=== PATIENT | female | born 1970 | race Caucasian/White ===

== ENCOUNTER 2017-01-06 17:34 | Emergency (ER) | payer OTHER ==
[~2017-01-06] VITALS: Ht 165.1 cm; Wt 87.0 kg
[~2017-01-06 17:34] MED LIST: NO MEDS.
[2017-01-06 17:43] VITALS: Ht 165.1 cm; Wt 87.0 kg
--- NOTE | 2017-01-06 19:50 | RADRPT ---
PROCEDURE: CT head CLINICAL INDICATION: Headaches TECHNIQUE: Contiguous 2.5 mm axial images were obtained from the vertex to the skull base. No int ravenous contrast was administered. The calculated dose length product (DLP) = 720.23 mGy-cm. The CTDlvol = 44.73 mGy. One or more of the following dose reduction techniques were used: Automated e xposure control, adjustment of the mA and or KV according to patient size, or use of iterative recon struction technique. COMPARISON: None FINDINGS: There is no evidence of acute intracranial hemorrhage or acute territorial infarct. No mass or mass effect is seen on this noncontrast study. The ventricles and cisterns are normal in size and confi guration. The ovalle-white matter differentiation is within normal limits. The visualized paranasal sinuses are normally aerated. The bony calvarium is unremarkable IMPRESSION: Unremarkable unenhanced CT of the brain RPTAT: HH .Nikolai Antoine MD, MD Date Time Electronically viewed and signed by .Nikolai Antoine MD, MD on 01/06/2017 19:50 .W/
[2017-01-06] MEDS ORDERED: KETOROLAC 30 MG INJ IM STA (19:54)
[2017-01-06] MEDS ORDERED: FIORICET PO (20:40)
[2017-01-06 20:53] VITALS: BP 136/73; PULSE 63; RESP 18; TEMP 98.7
--- NOTE | 2017-01-06 21:14 | ERD ---
ER Documentation Chief Complaint Date/Time DATE: 01/06/17 TIME: 21:07 Chief Complaint RODRIGUEZ X 2 WEEKS HPI Patient is a 46-year-old female who presents to the emergency department with a headache 2 weeks. Patient states the pain is in her right frontal and occipital regions. Patient states that the pain comes and goes in nature. Patient reports taking Tylenol and ibuprofen with no alleviation of symptoms. Patient does report of headaches in the past however she states her headaches do not typically last this long. Patient does report nausea, vomiting and photophobia. Patient denies any photophobia, blurry vision, neck stiffness, chest pain, shortness of breath, dizziness or LOC. Patient denies any trauma or falls. No recent travel. No sick contacts. ROS All systems reviewed and are negative except as per history of present illness. Medications Home Meds Active Scripts Acetamin/Butalbital/Caffeine* (Fioricet*) [id number] Tab, 1 TAB PO Q6H Y for PAIN, #20 TAB Prov:JUVENTINO CAMARA PA-C 01/06/17 Reported Medications [No Meds.] No Conflict Check 02/23/12 Allergies Allergies: Coded Allergies: No Known Drug Allergies (Verified Allergy, Unknown, 01/06/17) PMhx/Soc Medical and Surgical Hx: pt denies Medical Hx, pt denies Surgical Hx History of Surgery: Yes (HYSTERECTOMY, BUNIONECTOMY) Anesthesia Reaction: No Hx Neurological Disorder: No Hx Respiratory Disorders: No Hx Cardiac Disorders: No Hx Psychiatric Problems: No Hx Miscellaneous Medical Probl: No Hx Alcohol Use: No Hx Substance Use: No Hx Tobacco Use: No Physical Exam Vitals Vital Signs Date Time Temp Pulse Resp B/P Pulse Ox O2 Delivery O2 Flow Rate FiO2 01/06/17 20:53 98.7 63 18 136/73 99 Room Air 01/06/17 17:43 98.1 72 18 159/75 99 Physical Exam GENERAL: Well-developed, well-nourished female. Appears in no acute distress. Speaking in full sentences HEAD: Normocephalic, atraumatic. EYES: Pupils are equally reactive bilaterally. EOMs grossly intact. No conjunctival erythema. ENT: Moist mucous membranes. No uvula deviation. No kissing tonsils. NECK: Supple. No meningismus. Normal range of motion of the neck. No cervical midline tenderness. LUNG: Clear to auscultation bilaterally. No rhonchi, wheezing, rales or coarse breath sounds. HEART: Regular rate and rhythm. No murmurs, rubs or gallops. BACK: No midline tenderness. EXTREMITIES: Equal pulses bilaterally. No peripheral clubbing, cyanosis or edema. No unilateral leg swelling. NEUROLOGIC: Alert and oriented x3, cooperative. Mood and affect appropriate to situation. Cranial nerves II through XII are grossly intact. Normal speech. Motor exam: 5/5 strength in upper and lower extremities. Sensory exam: Sensation intact to light touch on all four extremities. Cerebellar function exam: No dysmetria on [id number]. Steady gait. No pronator drift. Negative Brudzinski sign. Negative Kernig sign. SKIN: No rashes or lesions noted. Results 24 hrs Current Medications Medications (Trade) Dose Ordered Sig/Radha Route PRN Reason Start Time Stop Time Status Last Admin Dose Admin Ketorolac Tromethamine (Toradol) 30 mg ONCE STAT IM 01/06/17 19:54 01/06/17 19:55 DC 01/06/17 20:07 Procedures/MDM ED COURSE: The patient was stable throughout ED course. I kept the patient and/or family informed of laboratory and diagnostic imaging results throughout the ED course. DIAGNOSTIC IMAGING: Read by radiologist. DIAGNOSTIC IMAGING REPORT Patient: THIAGO MICHAEL : 1970 Age: 46 Sex: F MR #: [id number] DOS: 01/06/17 1857 Ordering MD: JUVENTINO CAMARA PA-C Location: [facility] Room/Bed: PROCEDURE: CT head CLINICAL INDICATION: Headaches TECHNIQUE: Contiguous 2.5 mm axial images were obtained from the vertex to the skull base. No intravenous contrast was administered. The calculated dose length product (DLP) = 720.23 mGy-cm. The CTDlvol = 44.73 mGy. One or more of the following dose reduction techniques were used: Automated exposure control , adjustment of the mA and or KV according to patient size, or use of iterative reconstruction technique. COMPARISON: None FINDINGS: There is no evidence of acute intracranial hemorrhage or acute territorial infarct. No mass or mass effect is seen on this noncontrast study. The ventricles and cisterns are normal in size and configuration. The ovalle-white matter differentiation is within normal limits. The visualized paranasal sinuses are normally aerated. The bony calvarium is unremarkable IMPRESSION: Unremarkable unenhanced CT of the brain RPTAT: HH .iNkolai Antoine MD, MD Date Time Electronically viewed and signed by .Nikolai Antoine MD, MD on 01/06/2017 19:50 .W/ CC: JUVENTINO CAMARA PA-C PROCEDURES: None. MEDICATIONS GIVEN: Toradol IM was given to the patient after CT head came back negative. Patient tolerated medication well with no adverse reactions. Patient reported improvement in pain. MEDICAL DECISION MAKING: This is a 46-year-old female who presents with a headache 2 weeks. Patient states pain is intermittent in nature. Vital signs were reviewed. Patient was afebrile. Patient is not hypoxic. Patient does report a history of headaches in the past however she states that her headaches typically resolved. Patient denied any fevers, neck stiffness, visual changes or LOC. Full neurological exam was normal. CT scan of the brain was obtained given the patient stated that her headache lasted longer than usual. CT scan of the brain was negative. Given these findings, the patient's presentation is most consistent with tension versus migraine headache. I have a much lower clinical concern for intracranial hemorrhage, meningitis, encephalitis, CO poisoning, temporal arteritis, benign intracranial hypertension, intracranial mass, sinusitis, cluster headache. PRESCRIPTIONS: Fioricet DISCHARGE: At this time, patient is stable for discharge and outpatient management. Patient was provided with a copy of all imaging studies obtained today. I have encouraged the patient to hydrate well. I have instructed the patient to follow- up with his/her primary care physician in 1-2 days. If symptoms persist, patient may need to see a specialist for further examinations and testing. I have instructed the patient to promptly return to the ER at any time for any new or worsening symptoms including increased increased pain, fever, nausea, vomiting, numbness, neck stiffness, visual changes, weakness or LOC. The patient and/or family expressed understanding of and agreement with this plan. All questions were answered. Home care instructions were provided. Patient's blood pressure was elevated (>120/80) but appears stable without evidence of hypertensive emergency, hypertensive urgency or end-organ failure. I had discussion with the patient about the risks of hypertension. I have advised the patient to follow up with his/her primary care physician for outpatient monitoring and treatment for hypertension in 2-3 days. I have instructed the patient to return to the ER for any new or worsening symptoms including chest pain, shortness of breath, headache, blurred vision, confusion, nausea, vomiting or LOC. Departure Diagnosis: Primary Impression: Headache Headache type: unspecified Headache chronicity pattern: unspecified pattern Intractability: not intractable Qualified Code: R51 - Nonintractable headache, unspecified chronicity pattern, unspecified headache type Condition: Stable Patient Instructions: Self-Care for Headaches Referrals: DARYL AC MD (PCP) Additional Instructions: Call your primary care doctor TOMORROW for an appointment during the next 1-2 days.See the doctor sooner or return here if your condition worsens before your appointment time. JUVENTINO CAMARA PA-C Jan 06, 2017 21:14
== END 2017-01-06 20:50 | disposition home or self-care (01) ==
LOC: FTE 17:34
DX: R51 Headache (principal)
CPT/HCPCS: 70450; J1885; 96372